=== PATIENT | female | born 1990 | race Caucasian/White ===

== ENCOUNTER → 2018-02-17 | Outpatient (CLI) | payer MEDICAID | LOC: HPND 08:17 | PROVIDERS: ATTEND Obstetrics & Gynecology | DX: O35.0XX0 Maternal care for (suspected) central nervous system malformation in fetus, not applicable or unspecified (principal) | CPT/HCPCS: 76811 ==

== ENCOUNTER 2018-06-19 01:42 | Inpatient (IN) ==
[2018-06-19] MEDS ORDERED: Naloxone Inj 0.4 MG/ML Vial IV.PUSH PRN ×2 (02:41→14:06)
[2018-06-19] MEDS ORDERED: Sod Chloride 0.9% Inj 1,000 ML IV.CONT PRN (02:41)
[2018-06-19] MEDS ORDERED: fentaNYL Citrate Inj 100 MCG/2 ML Ampul IV.PUSH PRN ×2 (02:41)
[2018-06-19] MEDS ORDERED: Sodium Chlor 0.9% Inj 500 ML IV.SIG PRN (02:41)
[2018-06-19] MEDS ORDERED: Oxytocin 30 Units/500ml Premix 30 UNITS/500 ML BAG IV.SIG ONE (02:41)
--- NOTE | 2018-06-19 02:41 | ED ---
History of Present Illness Primary Care Physician: UNKNOWN Chief Complaint: LOF and contractions History of Present Illness: 27 yo presents at 40 wks c/o LOF since 12:30 am and contractions also since then. care with EULOGIO. uncomplicated . Review of Systems All other systems reviewed negative except as stated in HPI PMFSH - Medical / Surgical Hx Neg / Unobtainable Medical Problems Denied: Yes Surgical History: No Previous Surgery - Tobacco History Smoking Status: Never smoker - Alcohol History How Often Do You Have a Drink Containing Alcohol: Never (during ) - Substance Use History Substance History: No History of Abuse Medications and Allergies Allergies Allergy/AdvReac Type Severity Reaction Status Date / Time No Known Allergies Allergy Unverified 06/19/18 02:29 Home Medications Medication Instructions Recorded Confirmed Type PNV [id number] fumarate-FA 1 tab PO DAILY 06/19/18 06/19/18 History [] Exam Vital signs: Vital Signs 06/19/18 02:09 06/19/18 02:10 Temperature 97.7 F Pulse Rate 74 Respiratory Rate 20 Blood Pressure 124/61 - Constitutional no acute distress - Routine Neck Exam Present: supple, full ROM - Routine Respiratory Exam Present: CTA bilaterally - Routine Cardiovascular Exam Present: RRR - Routine Abdominal Exam Present: soft, normoactive bowel sounds - Routine Exam Comments: sve 1/80/-1 vtx FHTS 140s reactive, cat 1 tracing toco q 2-4 min Assessment and Plan - Diagnosis (1) SROM (spontaneous rupture of membranes) Status: Acute Plan: admit d/w dr. helms - Plan gbs neg Discharge Plan - Discharge Disposition Patient Disposition: 30 Still Patient - Physicians Team ED Provider: Dina Sellers Primary Care Provider: UNKNOWN,
[2018-06-19] MEDS ORDERED: Citric Acid/Sodium Citrate Liq 30 ML UDC PO SCH (02:45)
[2018-06-19 03:35] LABS: Baso % (Auto) 0.3 % (0.0-2.0); Eos % (Auto) 0.4 % (0.0-4.0); Hematocrit 37.4 % (35.0-46.0); Lymph # (Auto) 2.3 th/mm3 (1.0-4.8); Lymph % (Auto) 24.9 % (9.0-44.0); Mean Corpuscular HGB Conc 34.7 % (32.0-36.0); Mean Corpuscular Hemoglobin 32.2 pg (27.0-34.0); Mean Corpuscular Volume 92.8 fL (80.0-100.0); Mean Platelet Volume 10.2 fL (7.0-11.0); Mono # (Auto) 0.8 th/mm3 (0.0-0.9); Mono % (Auto) 8.2 % (0.0-8.0); Neut # (Auto) 6.2 th/mm3 (1.8-7.7); Neut % (Auto) 66.2 % (16.0-70.0); Platelet Count 152 th/mm3 (150-450); Red Blood Count 4.04 mil/mm3 (4.00-5.30); Red Cell Distribution Width 12.7 % (11.6-17.2); White Blood Count 9.4 th/mm3 (4.0-11.0)
[2018-06-19 03:48] LABS: Amphetamine Urine With Conf Neg (Neg); Benzodiazepine Urine With Conf Neg (Neg)
[2018-06-19] MEDS ORDERED: Lidocaine PF 1% Inj 30 ML Vial ONE (03:56)
[2018-06-19] MEDS ORDERED: fentaNYL 2MCG-Bupiv 0.125% Epi 150 ML EPIDURAL ONE (03:56)
[2018-06-19] MEDS ORDERED: fentaNYL 2MCG-Bupiv 0.125% Epi 150 ML EPIDURAL PRN (04:30)
[2018-06-19] MEDS ORDERED: fentaNYL Citrate Inj 100 MCG/2 ML Ampul EPIDURAL ONE (04:30)
[2018-06-19] MEDS ORDERED: Oxytocin 30 Units/500ml Premix 30 UNITS/500 ML BAG IV.SIG PRN (05:42)
--- NOTE | 2018-06-19 05:50 | P.OBGPN ---
S: Doing well, pain controlled, O: : Deferred FHTs: 120s, moderate variability, accelerations present, no decelerations TOCO: Contractions every 3-5 minutes A/P: 27 yo G1 @ 40w2d by 22w US admitted after SROM 1. IUP: cat 1 tracing - GBS neg - EFW 6.5-7 pounds clinically, cephalic by ultrasound at bedside now - Male, "Jayjay" 2. SROM / Jun of labor: Clear fluid around 1230am (06/19), continue pit per protocol, anticipate -Comfortable status post epidural 3. Suboptimally dated : 4. h/o of mild BL ventrigulomegaly (02/15, Lft 11mm, Rt 10mm), were then normal by MFM on 02/17.
[2018-06-19] MEDS ORDERED: Bisacodyl 10 MG Supp RECTAL PRN (14:06)
[2018-06-19] MEDS ORDERED: Benzocaine 20% Top Spray 60 ML Can TOPICAL PRN (14:06)
[2018-06-19] MEDS ORDERED: Acetaminophen 325 MG Tablet PO PRN (14:06)
[2018-06-19] MEDS ORDERED: Witch Hazel 50%/Glyderin 12.5% 40 Pad Jar RECTAL PRN (14:06)
--- NOTE | 2018-06-19 14:12 | P.OP ---
Date of procedure: 06/19/18 Surgeon: Quoc Murrieta MD Operation and Findings: Preoperative diagnosis: 1. Intrauterine at 40 weeks and 2 days Postop diagnosis 1. Same as above status post vaginal delivery Procedure 1. Term spontaneous vaginal delivery Surgeon Dr. Quoc Murrieta Band Teacher: Marlyn labor and delivery nursing staff Findings: 1. Viable male infant at 1322, Apgars 9 and 9. Compound presentation, left upper extremity. Loose nuchal 1. weight 3910g 2. Intact placenta with three-vessel cord at 1325 3. 3a laceration Anesthesia: Epidural Specimen: Placenta to disposal Estimated blood loss: 500 cc Fluid replacement: Lactated Ringer's and Pitocin Urine output: None recorded DVT prophylaxis: None Antibiotics: None required Counts: correct x2 Time out done: yes Disposition: Stable to Indications: Patient is a 27-year-old G1 now P1 001 who presented with spontaneous rupture membranes and was started on Pitocin for augmentation, she progressed to complete with reassuring tracing. Description of procedure: The patient began pushing after the bed was broken down, the head upon was allowed to restitute naturally for delivery with a supported perineum, with gentle downward guidance the anterior shoulder was delivered followed by gentle upper guidance for the posterior shoulder, the torso and lower extremities were delivered with ease and with continued perineal support. The infant had spontaneous cry and was placed on mom's abdomen for skin to skin contact, we allowed delayed cord clamping. After the cord was clamped and cut, cord blood was obtained. Pitocin was bolused and with fundal massage the placenta was delivered, there is minimal uterine bleeding and uterus was firm. The perineum, vagina and cervix were inspected and found 3a laceration, this was repaired in the standard fashion with a mixture of 2-0 and 3-0 Vicryl.. The patient tolerated the procedure well and was left in the birthing suite with her .
[2018-06-19] MEDS ORDERED: Oxytocin 30 Units/500ml Premix 30 UNITS/500 ML BAG IV.CONT SCH (14:15)
--- NOTE | 2018-06-19 14:16 | P.DS ---
Date of admission: 06/19/18 02:37 Primary care physician: UNKNOWN Brief History from admission: 27-year-old 001 who came in with spontaneous rupture membranes with augmented, had a spontaneous vaginal delivery without complications. She was discharged after meeting milestones. DS: Medications - Discharge Medications Prescriptions: ibuprofen [Motrin IB] 600 mg PO TID-QID PRN 30 Days tab PRN Reason: Pain DS: Summary Hospital Course: See brief history - Time Spent with Patient Total time spent providing and/or coordinating discharge services: Exam Vital signs: Vital Signs 06/19/18 02:09 06/19/18 02:10 06/19/18 03:21 Temperature 97.7 F Pulse Rate 74 Respiratory Rate 20 18 Blood Pressure 124/61 06/19/18 04:01 06/19/18 04:13 06/19/18 04:18 Temperature Pulse Rate 71 84 Respiratory Rate 16 16 Blood Pressure 110/57 L 143/68 H 06/19/18 04:41 06/19/18 04:51 06/19/18 05:00 Temperature 98.0 F Pulse Rate 56 L 68 52 L Respiratory Rate 16 Blood Pressure 106/53 L 110/66 105/54 L 06/19/18 05:35 06/19/18 06:01 06/19/18 06:30 Temperature Pulse Rate 67 71 Respiratory Rate 16 16 Blood Pressure 87/43 L 80/43 L 06/19/18 07:00 06/19/18 07:15 06/19/18 07:30 Temperature 98.3 F Pulse Rate 66 Respiratory Rate 16 18 Blood Pressure 106/61 06/19/18 08:00 06/19/18 08:15 06/19/18 08:30 Temperature Pulse Rate 63 74 Respiratory Rate 19 Blood Pressure 108/57 L 102/60 06/19/18 08:42 06/19/18 09:00 06/19/18 09:30 Temperature Pulse Rate 74 67 Respiratory Rate 18 Blood Pressure 119/61 96/45 L 06/19/18 09:56 06/19/18 10:00 06/19/18 10:30 Temperature Pulse Rate 66 81 Respiratory Rate 17 Blood Pressure 94/39 L 102/51 L 06/19/18 11:00 06/19/18 11:15 06/19/18 11:45 Temperature 97.6 F Pulse Rate 80 58 L Respiratory Rate 19 Blood Pressure 107/77 119/51 L 06/19/18 12:15 06/19/18 12:30 06/19/18 13:00 Temperature Pulse Rate 59 L Respiratory Rate 20 20 Blood Pressure 110/57 L 06/19/18 13:31 06/19/18 14:00 Temperature Pulse Rate 79 61 Respiratory Rate 18 Blood Pressure 108/52 L 108/53 L Intake & Output 06/18/18 06/19/18 06/19/18 18:59 06:59 18:59 Weight 155 kg Results Procedures completed during hospitalization: Term spontaneous vaginal delivery Labs on day of discharge: Labs from last 24 hours 06/19/18 06/19/18 06/19/18 02:51 02:51 02:50 WBC 9.4 RBC 4.04 Hgb 13.0 Hct 37.4 MCV 92.8 MCH 32.2 MCHC 34.7 RDW 12.7 Plt Count 152 MPV 10.2 Neut % (Auto) 66.2 Lymph % (Auto) 24.9 [place] % (Auto) 8.2 H Eos % (Auto) 0.4 Baso % (Auto) 0.3 Neut # (Auto) 6.2 Lymph # (Auto) 2.3 [place] # (Auto) 0.8 Eos # (Auto) 0.0 Baso # (Auto) 0.0 WBC Differential . Differential Comment Auto diff final Urine Opiates Screen Ur Buprenorphine Pending Ur Heroin Screen Pending Urine Oxycodone Pending Ur Methadone Pending U Hydromorphone Confirm Pending Urine Fentanyl Pending Ur Barbiturates Screen Urine Gabapentin Pending Ur Phencyclidine (PCP) Pending Urine MDPV Pending Ur Amphetamine Screen Ur MDMA & Metabolites Pending U Benzodiazepines Scrn Urine Cocaine Screen U Cannabinoids Screen Ur Synth THC (K2) Pending Blood Type A Positive Blood Type Recheck Required 06/19/18 02:50 WBC RBC Hgb Hct MCV MCH MCHC RDW Plt Count MPV Neut % (Auto) Lymph % (Auto) [place] % (Auto) Eos % (Auto) Baso % (Auto) Neut # (Auto) Lymph # (Auto) [place] # (Auto) Eos # (Auto) Baso # (Auto) WBC Differential Differential Comment Urine Opiates Screen Neg Ur Buprenorphine Ur Heroin Screen Urine Oxycodone Ur Methadone U Hydromorphone Confirm Urine Fentanyl Ur Barbiturates Screen Neg Urine Gabapentin Ur Phencyclidine (PCP) Urine MDPV Ur Amphetamine Screen Neg Ur MDMA & Metabolites U Benzodiazepines Scrn Neg Urine Cocaine Screen Neg U Cannabinoids Screen Neg Ur Synth THC (K2) Blood Type Blood Type Recheck Discharge Plan - Discharge Disposition Patient Disposition: 01 Discharge Home - Discharge Condition Condition: Good - Discharge Order Discharge Orders: Discharge Order (Routine); Ordered 06/21/18 Ordered By: Quoc Murrieta - Discharge Details Anticipated Discharge Date: 06/21/18 - Physicians Team Primary Care Provider: UNKNOWN, Attending Provider: Vivien Schmidt
[2018-06-19] MEDS: Ibuprofen 400 MG Tablet PO PRN ×2 (15:39→23:28)
[2018-06-19] MEDS ORDERED: Varicella Vaccine Live 1350 UNITS/0.5 ML Vial SQ ONE (16:00)
[2018-06-19] MEDS ORDERED: Measles/Mumps/Rubella Vaccine Inj 0.5 ML Vial SQ ONE (16:00)
[2018-06-19] MEDS ORDERED: Diphtheria/Tetanus/Pertussis Vaccine Inj 0.5 ML Syringe IM ONE (16:00)
[2018-06-19] MEDS ORDERED: Rho Immune Globulin Inj 1,500 UNIT/1.3 ML Vial IM ONE (16:00)
[2018-06-19] MEDS ORDERED: Zolpidem Tartrate 5 MG Tablet PO PRN (21:00)
[2018-06-19] MEDS: Senna/Docusate Sodium 8.6/50 MG Tablet PO SCH (21:40)
--- NOTE | 2018-06-20 06:01 | P.OBGPN ---
queried PDMP and no matching patient found.
--- NOTE | 2018-06-20 08:16 | P.PNOB ---
Subjective Post day: 1 Interval history: Doing well, pain controlled, vaginal bleeding less than menses, voiding without difficulty. Objective Vital Signs/I&O: Vital Signs 06/19/18 08:15 06/19/18 08:30 06/19/18 08:42 Temperature Pulse Rate 74 Respiratory Rate 19 18 Blood Pressure 102/60 06/19/18 09:00 06/19/18 09:30 06/19/18 09:56 Temperature Pulse Rate 74 67 Respiratory Rate 17 Blood Pressure 119/61 96/45 L 06/19/18 10:00 06/19/18 10:30 06/19/18 11:00 Temperature Pulse Rate 66 81 80 Respiratory Rate Blood Pressure 94/39 L 102/51 L 107/77 06/19/18 11:15 06/19/18 11:45 06/19/18 12:15 Temperature 97.6 F Pulse Rate 58 L Respiratory Rate 19 20 Blood Pressure 119/51 L 06/19/18 12:30 06/19/18 13:00 06/19/18 13:31 Temperature Pulse Rate 59 L 79 Respiratory Rate 20 18 Blood Pressure 110/57 L 108/52 L 06/19/18 14:00 06/19/18 14:05 06/19/18 14:35 Temperature 99.3 F Pulse Rate 61 77 Respiratory Rate 17 17 Blood Pressure 108/53 L 105/52 L 06/19/18 15:00 06/19/18 15:19 06/19/18 15:30 Temperature Pulse Rate 77 70 Respiratory Rate 18 Blood Pressure 112/61 115/61 06/19/18 16:00 06/19/18 16:05 06/19/18 16:30 Temperature Pulse Rate 69 65 Respiratory Rate 17 Blood Pressure 108/59 L 108/55 L 06/19/18 17:00 06/19/18 17:03 06/19/18 17:30 Temperature Pulse Rate 74 61 Respiratory Rate 18 Blood Pressure 109/57 L 116/47 L 06/19/18 17:40 06/19/18 18:00 06/19/18 18:30 Temperature Pulse Rate 79 68 Respiratory Rate 17 Blood Pressure 122/69 113/56 L 06/19/18 18:40 06/19/18 20:00 Temperature 98.2 F Pulse Rate 67 Respiratory Rate 19 18 Blood Pressure 118/55 L Result Diagrams: 06/19/18 02:51 Objective Remarks: GENERAL: Well-nourished, well-developed patient. CARDIOVASCULAR: Regular rate and rhythm without murmurs, gallops, or rubs. RESPIRATORY: Breath sounds equal bilaterally. No accessory muscle use. ABDOMEN/GI: Abdomen soft, non-tender. Fundus: Firm, non-tender at umbilicus. GENITOURINARY: Light to moderate bleeding. EXTREMITIES: No cyanosis or edema, non-tender, without signs of DVT. Medications and IVs: Active Medications Acetaminophen (Tylenol) 650 mg PO Q4H PRN PRN Reason: PAIN SCALE 1 TO 2 Al Hydroxide/Mg Hydroxide (Milk Of Magnesia Liq) 30 ml PO Q12H PRN PRN Reason: Mild Constipation Benzocaine (Americaine 20% [place]) 1 spray TOPICAL Q4H PRN PRN Reason: For Perineum Discomfort Last Admin: 06/19/18 21:40 Dose: 1 spray Bisacodyl (Dulcolax Supp) 10 mg RECTAL DAILY PRN PRN Reason: SEVERE CONSITIPATION Lactulose (Lactulose Liq) 30 ml PO DAILY PRN PRN Reason: SEVERE CONSITIPATION Naloxone HCl (Narcan Inj) 0.1 mg IV.PUSH Q2M PRN PRN Reason: for opiate reversal Ondansetron HCl (Zofran Odt) 4 mg PO Q6H PRN PRN Reason: NAUSEA OR VOMITING Oxycodone/Acetaminophen (Percocet 5/325 Mg) 1 tab PO Q4H PRN PRN Reason: PAIN SCALE 3 TO 5 Last Admin: 06/19/18 23:21 Dose: 1 tab Oxycodone/Acetaminophen (Percocet 5/325 Mg) 2 tab PO Q4H PRN PRN Reason: PAIN SCALE 6 TO 10 Senna/Docusate Sodium (Mckenzie-Colace) 1 tab PO BID TAY Last Admin: 06/19/18 21:40 Dose: 1 tab Sennosides (Senokot) 17.2 mg PO Q12H PRN PRN Reason: Moderate Constipation Sodium Chloride (Ns Flush) 2 ml IV.FLUSH BID TAY Sodium Chloride (Ns Flush) 2 ml IV.FLUSH PRN PRN PRN Reason: FLUSH AFTER USING IV ACCESS [place]/Glycerin (Tucks Pads) 1 applicatio RECTAL QID PRN PRN Reason: HEMORRHOIDS Last Admin: 06/19/18 21:40 Dose: 1 applicatio Zolpidem Tartrate (Ambien) 5 mg PO HS PRN PRN Reason: SLEEP Assessment and Plan - Plan 27-year-old 001 status post at 40 weeks and 2 days 1. day #1: Afebrile, vital signs stable, anticipate discharge home in the next 24 hours, discussed precautions expectations and follow- up. -Male , did not pay for circumcision, discussed that can be done in the office after discharge. 2. Third-degree laceration: Discussed hydration, pain control, hygiene and avoiding constipation.
[2018-06-20] MEDS: Senna/Docusate Sodium 8.6/50 MG Tablet PO SCH (08:18)
[2018-06-20] MEDS: Ibuprofen 400 MG Tablet PO PRN ×2 (08:18→17:21)
[2018-06-21] MEDS: Ibuprofen 400 MG Tablet PO PRN (01:46)
[2018-06-21] MEDS: Senna/Docusate Sodium 8.6/50 MG Tablet PO SCH (08:15)
--- NOTE | 2018-06-21 08:35 | P.PNOB ---
Subjective Post day: 2 Interval history: Doing well with nursing no complaints desires circ--will need to have done in office Objective Vital Signs/I&O: Vital Signs 06/20/18 11:28 06/20/18 15:00 06/20/18 19:33 Temperature 98.2 F 98.4 F 99.0 F Pulse Rate 71 71 66 Respiratory Rate 16 16 16 Blood Pressure 113/56 L 116/63 117/60 Result Diagrams: 06/19/18 02:51 Objective Remarks: GENERAL: Well-nourished, well-developed patient. CARDIOVASCULAR: Regular rate and rhythm without murmurs, gallops, or rubs. RESPIRATORY: Breath sounds equal bilaterally. No accessory muscle use. ABDOMEN/GI: Abdomen soft, non-tender. Fundus: Firm, non-tender at umbilicus. GENITOURINARY: Light to moderate bleeding. EXTREMITIES: No cyanosis or edema, non-tender, without signs of DVT. Medications and IVs: Active Medications Acetaminophen (Tylenol) 650 mg PO Q4H PRN PRN Reason: PAIN SCALE 1 TO 2 Al Hydroxide/Mg Hydroxide (Milk Of Magnesia Liq) 30 ml PO Q12H PRN PRN Reason: Mild Constipation Benzocaine (Americaine 20% [place]) 1 spray TOPICAL Q4H PRN PRN Reason: For Perineum Discomfort Last Admin: 06/19/18 21:40 Dose: 1 spray Bisacodyl (Dulcolax Supp) 10 mg RECTAL DAILY PRN PRN Reason: SEVERE CONSITIPATION Lactulose (Lactulose Liq) 30 ml PO DAILY PRN PRN Reason: SEVERE CONSITIPATION Naloxone HCl (Narcan Inj) 0.1 mg IV.PUSH Q2M PRN PRN Reason: for opiate reversal Ondansetron HCl (Zofran Odt) 4 mg PO Q6H PRN PRN Reason: NAUSEA OR VOMITING Oxycodone/Acetaminophen (Percocet 5/325 Mg) 1 tab PO Q4H PRN PRN Reason: PAIN SCALE 3 TO 5 Last Admin: 06/19/18 23:21 Dose: 1 tab Oxycodone/Acetaminophen (Percocet 5/325 Mg) 2 tab PO Q4H PRN PRN Reason: PAIN SCALE 6 TO 10 Senna/Docusate Sodium (Mckenzie-Colace) 1 tab PO BID TAY Last Admin: 06/21/18 08:15 Dose: 1 tab Sennosides (Senokot) 17.2 mg PO Q12H PRN PRN Reason: Moderate Constipation Sodium Chloride (Ns Flush) 2 ml IV.FLUSH BID [facility] Last Admin: 06/21/18 08:15 Dose: Not Given Sodium Chloride (Ns Flush) 2 ml IV.FLUSH PRN PRN PRN Reason: FLUSH AFTER USING IV ACCESS [place]/Glycerin (Tucks Pads) 1 applicatio RECTAL QID PRN PRN Reason: HEMORRHOIDS Last Admin: 06/19/18 21:40 Dose: 1 applicatio Zolpidem Tartrate (Ambien) 5 mg PO HS PRN PRN Reason: SLEEP Assessment and Plan - Plan 27-year-old 001 status post at 40 weeks and 2 days 1. day #1: Afebrile, vital signs stable, anticipate discharge home in the next 24 hours, discussed precautions expectations and follow- up. -Male , did not pay for circumcision, discussed that can be done in the office after discharge. 2. Third-degree laceration: Discussed hydration, pain control, hygiene and avoiding constipation. 06/21/18 PPD 2 Doing very well with nursing no complaints ready for discharge circ in office
[2018-06-21 08:58] VITALS: BP 113/58; PULSE 60; RESP 18
[2018-06-21 08:59] VITALS: TEMP 98.1
== END 2018-06-21 12:36 | disposition home or self-care (01) ==
LOC: HOBED 01:42 → H2E 02:37 → H1EA 19:26
PROVIDERS: ADMIT Obstetrics & Gynecology; ATTEND Obstetrics & Gynecology
DX: Z3A.40 40 weeks gestation of pregnancy; O32.6XX0 Maternal care for compound presentation, not applicable or unspecified; Z37.0 Single live birth; O70.21 Third degree perineal laceration during delivery, IIIa; O69.81X0 Labor and delivery complicated by cord around neck, without compression, not applicable or unspecified